=== PATIENT | male | born 1960 ===

== ENCOUNTER 2024-08-31 15:29 | Outpatient (REF) | payer MEDICAID, SELFPAY ==
--- OUTSIDE RECORDS SUMMARY | 2024-09-03 15:32 | XMS_ITS | Clinical Summary ---
Author Organization [facility] Address [address] [place] [address] Care Team Providers Care Divinity Professor Name Role Phone Chikis Shabazz PA-C Primary Care Provider Source Comments PLEASE NOTE, if this patient is a minor, it may be UNLAWFUL to discuss sensitive information that is contained in these records (such as FAMILY PLANNING, MENTAL HEALTH or SUBSTANCE ABUSE) with the minor patient's parent or other person without the patient's specific authorization.[facility] Allergies No known active allergies Medications orphenadrine (NORFLEX ER) 100 mg 12 hr tablet Take 1 Tab by mouth nightly at bedtime as needed for muscle spasms. Swallow whole. Do not crush or chew. 30 Tab 0 6 Active silver sulfADIAZINE (SILVADENE) 1 % cream Apply topically once daily 85 g 5 7 Active diclofenac sodium (VOLTAREN) [address] tabletIndications :Chronic midline low back pain without sciatica,Lumbar radiculopathy, chronic Take 1 Tab by mouth 2 (two) times daily Swallow whole. Do not crush or chew. 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 root 03/20/2013 Nephrolithiasis 03/20/2013 Social History Tobacco Use Types Packs/Day Years Used Date Smoking Tobacco: Never Smokeless Tobacco: Never Alcohol Use Standard Drinks/Week Comments No 0 (1 standard drink = 0.6 oz pur e alcohol) Social Connections Answer Date Recorded Connectedness 0 02/01/2024 Financial Resource Strain Answer Date R ecorded Financial Resource Strain 0 2020 Stress Answer Date Recorded Stress 0 03/19/2021 Physical Activity Answer Date Recorded Physical Activity 0 03/19/2021 Food Insecurity Answer Date Recorded Food 0 02/09/2024 Transportation Needs Answer Date Record ed Transportation 0 03/19/2021 Housing Stability Answer Date Recorded Housing 0 03/19/2021 Safety and Environment Answer Date Nitesh rded Safety 0 03/19/2021 Utilities Answer Date Recorded Utilities 0 03/19/2021 Employment Answer Date Recorded Stress 0 02/01/2024 Sex and Gender Information Value Date Recorded Sex Assigned at Not on file Legal Sex Male 11:36 AM PDT Gender Identity Not on file Sexual Orientation Not on file Last Filed Vital Signs Vital Sign Reading Time Taken Comments Blood Pressure 120/78 10/19/2016 1:08 PM EDT Pulse 78 10/19/2016 1:08 PM EDT Temperature 36.9 ??C (98.4 ??F) 10/19/2016 1:08 PM ED T Respiratory Rate 18 10/19/2016 1:08 PM EDT Oxygen Saturation - - Inhaled Oxygen Concentration - - Weight 94.3 kg (208 lb) 10/19/2016 1:08 PM EDT Height 170.2 cm (5' 7 ) 03/06/2014 10:58 AM EDT Body Mass Index 32.58 03/06/2014 10:58 AM EDT Plan of Treatment Not on file Insurance [place] Care Teams Divinity Professor Relationship Specialty Start Date End Date Chikis Shabazz PA-C [address] [place] [phone] PCP - General Internal Medicine 03/06/14
== END 2024-08-31 15:30 | disposition home or self-care (01) ==
LOC: HO.HOSX 15:29
PROVIDERS: Visit Provider Physician Assistant
DX: Z13.89 Encounter for screening for other disorder (principal)